=== PATIENT | female | born 1935 | race Hispanic/Latino ===

== ENCOUNTER → 2018-08-19 | Outpatient (CLI) | payer MEDICARE ==
[~2018-08-19] MED LIST: AMLO5TAB7 PO; ASPI-1181 PO; ATOR40TA71 PO; DOCU-282 PO; FERR324T4 PO; FURO40TA5 PO; LEVO150T11 PO; METO25TA6 PO
== END | disposition home or self-care (01) ==
LOC: SHCH 10:07
PROVIDERS: ATTEND Internal Medicine Cardiovascular Disease
DX: I51.7 Cardiomegaly (principal); I25.10 Atherosclerotic heart disease of native coronary artery without angina pectoris; I34.8 Other nonrheumatic mitral valve disorders
CPT/HCPCS: 93306